=== PATIENT | female | born 1945 | race Asian ===

== ENCOUNTER 2016-11-08 12:04 | Outpatient (CLI) | payer OTHER ==
[2016-11-08 12:41] LABS: PLATELET COUNT 329 K/uL (152-353)
[2016-11-08 13:06] LABS: POTASSIUM 4.2 mmol/L (3.6-5.2); SODIUM 138 mmol/L (136-145)
== END 2016-11-09 00:39 | disposition home or self-care (01) ==
LOC: LABW 12:04
PROVIDERS: Physician Assistant Medical
DX: I10 Essential (primary) hypertension (principal); E78.00 Pure hypercholesterolemia, unspecified; E11.9 Type 2 diabetes mellitus without complications; E04.1 Nontoxic single thyroid nodule; N95.8 Other specified menopausal and perimenopausal disorders; Z79.899 Other long term (current) drug therapy; Z51.81 Encounter for therapeutic drug level monitoring
CPT/HCPCS: 36415; 80053; 80061; 82043; 82570; 83036; 84443; 85027; 86140

== ENCOUNTER 2017-02-11 15:49 | Outpatient (CLI) | payer OTHER | END 2017-02-11 19:37 | disposition home or self-care (01) | LOC: MAMMO 15:49 | DX: Z12.31 Encounter for screening mammogram for malignant neoplasm of breast (principal) | CPT/HCPCS: G0202-TC ==

== ENCOUNTER 2017-12-29 12:18 | Outpatient (CLI) | payer OTHER ==
[2017-12-29 12:42] LABS: PLATELET COUNT 288 K/uL (152-353)
== END 2017-12-29 20:00 | disposition home or self-care (01) ==
LOC: LABW 12:18
PROVIDERS: Physician Assistant Medical
DX: E11.9 Type 2 diabetes mellitus without complications (principal); I10 Essential (primary) hypertension; E78.2 Mixed hyperlipidemia; Z79.899 Other long term (current) drug therapy; Z51.81 Encounter for therapeutic drug level monitoring
CPT/HCPCS: 36415; 80053; 80061; 83036; 84443; 85027

== ENCOUNTER 2018-03-18 10:59 | Outpatient (CLI) | payer OTHER | END 2018-03-18 19:19 | disposition home or self-care (01) | LOC: MAMMO 10:59 | DX: Z12.31 Encounter for screening mammogram for malignant neoplasm of breast (principal) ==

== ENCOUNTER 2018-09-03 14:11 | Outpatient (CLI) | payer OTHER | END 2018-09-03 20:27 | disposition home or self-care (01) | LOC: RAD 14:11 | DX: M81.8 Other osteoporosis without current pathological fracture (principal) ==

== ENCOUNTER 2018-12-17 11:08 | Outpatient (CLI) | payer OTHER | END 2018-12-17 20:00 | disposition home or self-care (01) | LOC: MRI 11:08 | DX: R42 Dizziness and giddiness (principal); R51 Headache ==

== ENCOUNTER 2019-04-15 13:36 | Outpatient (CLI) | payer OTHER | END 2019-04-15 21:55 | disposition home or self-care (01) | LOC: MAMMO 13:36 | DX: Z12.31 Encounter for screening mammogram for malignant neoplasm of breast (principal) ==

== ENCOUNTER 2019-07-19 08:47 | Outpatient (CLI) | payer OTHER | END 2019-07-19 20:14 | disposition home or self-care (01) | LOC: NM 08:47 | DX: I42.8 Other cardiomyopathies (principal); I48.91 Unspecified atrial fibrillation | CPT/HCPCS: A9500; J2785 ==

== ENCOUNTER 2019-08-15 13:55 | Outpatient (CLI) | payer OTHER ==
[2019-08-15 14:15] LABS: PLATELET COUNT 329 K/uL (152-353)
[2019-08-15 14:37] LABS: POTASSIUM 4.5 mmol/L (3.6-5.2)
== END 2019-08-15 21:32 | disposition home or self-care (01) ==
LOC: LABW 13:55
PROVIDERS: Specialist
DX: R07.2 Precordial pain (principal); R93.1 Abnormal findings on diagnostic imaging of heart and coronary circulation
CPT/HCPCS: 36415; 80053; 85027

== ENCOUNTER 2019-08-17 10:37 | Outpatient (CLI) | payer OTHER | END 2019-08-17 22:01 | disposition home or self-care (01) | LOC: LABW 10:37 | PROVIDERS: Nurse Practitioner Adult Health | DX: E78.2 Mixed hyperlipidemia (principal); Z79.899 Other long term (current) drug therapy | CPT/HCPCS: 36415; 80061; 80076 ==

== ENCOUNTER 2020-02-04 12:26 | Outpatient (CLI) | payer OTHER ==
[2020-02-04 13:07] LABS: POTASSIUM 4.5 mmol/L (3.6-5.2)
== END 2020-02-04 19:40 | disposition home or self-care (01) ==
LOC: LABW 12:26
PROVIDERS: Specialist
DX: E78.2 Mixed hyperlipidemia (principal); Z79.899 Other long term (current) drug therapy
CPT/HCPCS: 80048; 80061; 80076

== ENCOUNTER 2020-07-21 11:58 | Outpatient (CLI) | payer OTHER ==
[2020-07-21 12:48] LABS: POTASSIUM 4.7 mmol/L (3.6-5.2)
== END 2020-07-21 18:57 | disposition home or self-care (01) ==
LOC: LABW 11:58
PROVIDERS: ATTEND Nurse Practitioner Adult Health
DX: E78.2 Mixed hyperlipidemia (principal); Z79.899 Other long term (current) drug therapy
CPT/HCPCS: 36415; 80048; 80061; 80076

== ENCOUNTER 2020-11-26 16:32 | Outpatient (CLI) | payer OTHER ==
[2020-11-26 17:11] LABS: POTASSIUM 4.7 mmol/L (3.6-5.2)
== END 2020-11-26 20:54 | disposition home or self-care (01) ==
LOC: LABW 16:32
PROVIDERS: ATTEND Nurse Practitioner Adult Health
DX: Z86.79 Personal history of other diseases of the circulatory system (principal); R06.09 Other forms of dyspnea
CPT/HCPCS: 36415; 80048

== ENCOUNTER 2020-12-17 11:34 | Outpatient (CLI) | payer OTHER ==
[2020-12-17 11:50] LABS: POTASSIUM 5.1 mmol/L (3.6-5.2)
== END 2020-12-17 19:36 | disposition home or self-care (01) ==
LOC: LABW 11:34
PROVIDERS: ATTEND Nurse Practitioner Adult Health
DX: R35.8 Other polyuria (principal); Z09 Encounter for follow-up examination after completed treatment for conditions other than malignant neoplasm
CPT/HCPCS: 36415; 80048

== ENCOUNTER 2021-01-09 10:53 | Outpatient (CLI) | payer OTHER ==
[2021-01-09 11:15] LABS: POTASSIUM 4.3 mmol/L (3.6-5.2)
== END 2021-01-09 20:20 | disposition home or self-care (01) ==
LOC: LABW 10:53
PROVIDERS: ATTEND Nurse Practitioner Adult Health
DX: E87.5 Hyperkalemia (principal); Z79.899 Other long term (current) drug therapy
CPT/HCPCS: 36415; 80048

== ENCOUNTER 2021-03-11 11:33 | Outpatient (CLI) | payer OTHER ==
[2021-03-11 12:58] LABS: POTASSIUM 4.7 mmol/L (3.6-5.2)
== END 2021-03-11 21:02 | disposition home or self-care (01) ==
LOC: LABW 11:33
PROVIDERS: ATTEND Nurse Practitioner Adult Health
DX: E87.5 Hyperkalemia (principal); Z79.899 Other long term (current) drug therapy
CPT/HCPCS: 36415; 80048

== ENCOUNTER 2021-04-11 11:45 | Outpatient (CLI) | payer OTHER | END 2021-04-11 20:17 | disposition home or self-care (01) | LOC: LABW 11:45 | PROVIDERS: ATTEND Nurse Practitioner Adult Health | DX: E78.5 Hyperlipidemia, unspecified (principal); Z79.899 Other long term (current) drug therapy | CPT/HCPCS: 36415; 80061; 80076 ==

== ENCOUNTER 2021-05-13 10:02 | Outpatient (CLI) | payer OTHER ==
[2021-05-13 10:21] LABS: PLATELET COUNT 283 K/uL (152-353)
[2021-05-13 11:16] LABS: POTASSIUM 4.2 mmol/L (3.6-5.2)
== END 2021-05-13 20:01 | disposition home or self-care (01) ==
LOC: LABW 10:02
PROVIDERS: ATTEND Nurse Practitioner Adult Health
DX: R35.8 Other polyuria (principal); Z79.899 Other long term (current) drug therapy; E11.65 Type 2 diabetes mellitus with hyperglycemia; I48.20 Chronic atrial fibrillation, unspecified; D55.0 Anemia due to glucose-6-phosphate dehydrogenase [G6PD] deficiency; D64.89 Other specified anemias; E55.9 Vitamin D deficiency, unspecified
CPT/HCPCS: 36415; 80053; 80061; 82248; 82306; 83036; 85027

== ENCOUNTER 2021-05-20 15:55 | Outpatient (CLI) | payer OTHER | END 2021-05-20 21:12 | disposition home or self-care (01) | LOC: LAB 15:55 | PROVIDERS: ATTEND Internal Medicine | DX: D55.0 Anemia due to glucose-6-phosphate dehydrogenase [G6PD] deficiency (principal); D64.89 Other specified anemias; E55.9 Vitamin D deficiency, unspecified | CPT/HCPCS: 82272 ==

== ENCOUNTER → 2021-07-29 | Outpatient (CLI) | payer OTHER | LOC: MAMMO 10:40 | PROVIDERS: ATTEND Internal Medicine | DX: Z12.31 Encounter for screening mammogram for malignant neoplasm of breast (principal) ==

== ENCOUNTER 2021-10-15 09:44 | Outpatient (CLI) | payer OTHER | END 2021-10-15 19:04 | disposition home or self-care (01) | LOC: US 09:44 | PROVIDERS: ATTEND Internal Medicine Nephrology | DX: E11.9 Type 2 diabetes mellitus without complications (principal); E78.49 Other hyperlipidemia; I12.9 Hypertensive chronic kidney disease with stage 1 through stage 4 chronic kidney disease, or unspecified chronic kidney disease; I48.91 Unspecified atrial fibrillation; N18.32 Chronic kidney disease, stage 3b ==

== ENCOUNTER 2022-07-31 09:12 | Outpatient (CLI) | payer OTHER | END 2022-07-31 18:57 | disposition home or self-care (01) | LOC: MAMMO 09:12 | PROVIDERS: ATTEND Obstetrics & Gynecology | DX: Z12.31 Encounter for screening mammogram for malignant neoplasm of breast (principal) ==